=== PATIENT | female | born 1930 | race Hispanic/Latino ===

== ENCOUNTER 2021-06-26 05:43 | Emergency (ER) | payer MEDICARE ==
[~2021-06-26] VITALS: Ht 152.4 cm; Wt 70.8 kg
[2021-06-26 06:22] LABS: BASOPHILS % (AUTO) 0.2 % (0.0-5.0); EOSINOPHILS % (AUTO) 0.5 % (0.0-8.0); HEMATOCRIT 32.1 % (36-48); LYMPHOCYTES % (AUTO) 29.4 % (21.0-51.0); MEAN CORPUSCULAR HEMOGLOBIN 30.7 pg (27.0-33.0); MEAN CORPUSCULAR HGB CONC 35.2 g/dL (32.0-36.0); MEAN CORPUSCULAR VOLUME 87.2 fL (79-99); MONOCYTES % (AUTO) 6.3 % (3.0-13.0); NEUTROPHILS % (AUTO) 63.3 % (40.0-77.0); PLATELET COUNT (AUTO) 188 K/uL (130-400); RED BLOOD CELL COUNT(AUTO) 3.68 MIL/uL (4.00-5.50); RED CELL DISTRIBUTION WIDTH 13.4 % (11.0-15.5); WHITE BLOOD COUNT (AUTO) 6.6 K/uL (4.8-10.8)
[2021-06-26 06:25] LABS: APPEARANCE,URINE Clear (CLEAR); BILIRUBIN,URINE Negative (NEGATIVE); COLOR,URINE Yellow (YELLOW); GLUCOSE, URINE (UA) Negative (NEGATIVE); KETONES,URINE Negative (NEGATIVE); LEUKOCYTE ESTERASE ,URINE Trace (NEGATIVE); NITRATE,URINE Negative (NEGATIVE); OCCULT BLOOD,URINE Trace (NEGATIVE); PROTEIN,URINE Negative (NEGATIVE)
[2021-06-26] MEDS ORDERED: ONDANSETRON 4MG INJ IVP SCH (06:30)
[2021-06-26] MEDS ORDERED: MORPHINE 2 MG SYG IVP SCH (06:30)
[2021-06-26 06:32] LABS: BACTERIA,URINE None Seen /HPF (None Seen); RBC,URINE 0-1 /HPF (0-1); SQUAMOUS EPITHELIAL CELL,UR Rare /HPF (0-2); WBC,URINE 0-1 /HPF (0-1)
[2021-06-26 06:33] LABS: ALBUMIN 3.7 g/dL (3.5-5.0); BILIRUBIN,TOTAL 0.7 mg/dL (0.2-1.0); CREATININE 0.7 mg/dL (0.5-1.5); TOTAL PROTEIN, SERUM 7.1 g/dL (6.0-8.3)
[2021-06-26] MEDS ORDERED: ONDANSETRON 4MG INJ ONE (06:33)
[2021-06-26] MEDS ORDERED: MORPHINE 2 MG SYG ONE (06:33)
[2021-06-26 06:37] LABS: POTASSIUM 2.9 mmol/L (3.5-5.1)
[2021-06-26] MEDS ORDERED: POTASSIUM BICARB/CIT AC 25 MEQ TABLET.EFF PO SCH (07:30)
[2021-06-26] MEDS ORDERED: KETOROLAC 15MG/ML VIAL (15MG/ML) IV SCH (08:30)
[2021-06-26] MEDS ORDERED: LIDOCAINE 5% TOPICAL PATCH TP SCH (08:30)
[2021-06-26] MEDS ORDERED: LIDOCAINE 5% TOPICAL PATCH TP ONE (08:31)
[2021-06-26] MEDS ORDERED: KETOROLAC 15MG/ML VIAL (15MG/ML) ONE (08:31)
[2021-06-26 08:40] VITALS: BP 145/59
[2021-06-26] MEDS ORDERED: DICL20GE TP (09:19)
[2021-06-26] MEDS ORDERED: LIDOP TD (09:19)
== END 2021-06-26 09:24 | disposition home or self-care (01) ==
LOC: EDH 05:43
DX: E87.6 Hypokalemia (principal); R07.89 Other chest pain; I10 Essential (primary) hypertension; M19.90 Unspecified osteoarthritis, unspecified site; Z79.1 Long term (current) use of non-steroidal anti-inflammatories (NSAID); Z79.899 Other long term (current) drug therapy; Z90.49 Acquired absence of other specified parts of digestive tract
CPT/HCPCS: 36415; 71045; 74176; 80053; 81001; 82150; 83690; 84484; 85025; 93005; 96374; 96375; 99285; J1885; J2405

== ENCOUNTER 2022-02-15 18:07 | Emergency (ER) | payer MEDICARE ==
[~2022-02-15] VITALS: Ht 152.4 cm; Wt 63.5 kg
[~2022-02-15 18:07] MED LIST: DICL20GE TP; LIDOP TD
[2022-02-15 18:11] VITALS: BP 207/84
[2022-02-15 18:39] LABS: APPEARANCE,URINE Cloudy (CLEAR); BILIRUBIN,URINE Negative (NEGATIVE); COLOR,URINE Orange (YELLOW); GLUCOSE, URINE (UA) Negative (NEGATIVE); KETONES,URINE Negative (NEGATIVE); LEUKOCYTE ESTERASE ,URINE Large (NEGATIVE); NITRATE,URINE Negative (NEGATIVE); OCCULT BLOOD,URINE Large (NEGATIVE); PH,URINE 5.5 (5.0-8.0); PROTEIN,URINE 300 mg/dL (NEGATIVE); UROBILINOGEN,URINE 0.2 mg/dL (0.2-1.0)
[2022-02-15 18:47] LABS: WBC,URINE 51-100 /HPF (0-1)
[2022-02-15 18:48] LABS: BACTERIA,URINE Rare /HPF (None Seen); SQUAMOUS EPITHELIAL CELL,UR Rare /HPF (0-2)
[2022-02-15 18:58] LABS: BASOPHILS % (AUTO) 0.2 % (0.0-5.0); EOSINOPHILS % (AUTO) 0.2 % (0.0-8.0); HEMATOCRIT 35.6 % (36-48); LYMPHOCYTES % (AUTO) 20.2 % (21.0-51.0); MEAN CORPUSCULAR HEMOGLOBIN 30.3 pg (27.0-33.0); MEAN CORPUSCULAR HGB CONC 34.6 g/dL (32.0-36.0); MEAN CORPUSCULAR VOLUME 87.7 fL (79-99); MONOCYTES % (AUTO) 6.2 % (3.0-13.0); NEUTROPHILS % (AUTO) 72.6 % (40.0-77.0); PLATELET COUNT (AUTO) 210 K/uL (130-400); RED BLOOD CELL COUNT(AUTO) 4.06 MIL/uL (4.00-5.50); RED CELL DISTRIBUTION WIDTH 12.7 % (11.0-15.5); WHITE BLOOD COUNT (AUTO) 13.3 K/uL (4.8-10.8)
[2022-02-15 19:51] LABS: CREATININE 0.6 mg/dL (0.5-1.5); POTASSIUM 3.8 mmol/L (3.5-5.1)
[2022-02-15 19:56] LABS: ALBUMIN 3.8 g/dL (3.5-5.0); BILIRUBIN,TOTAL 0.5 mg/dL (0.2-1.0); TOTAL PROTEIN, SERUM 7.4 g/dL (6.0-8.3)
[2022-02-15] MEDS ORDERED: CEPH500B PO (20:30)
[2022-02-15] MEDS ORDERED: CEPHALEXIN 500 MG CAPSULE PO ONE (20:30)
== END 2022-02-15 20:41 | disposition home or self-care (01) ==
LOC: EDH 18:07
DX: N39.0 Urinary tract infection, site not specified (principal); J20.9 Acute bronchitis, unspecified; I10 Essential (primary) hypertension; Z79.1 Long term (current) use of non-steroidal anti-inflammatories (NSAID)
CPT/HCPCS: 36415; 80053; 81001; 85025; 87077; 87088; 87186

== ENCOUNTER 2022-05-30 22:56 | Emergency (ER) | payer MEDICARE ==
[~2022-05-30] VITALS: Ht 154.9 cm; Wt 67.1 kg
[~2022-05-30 22:56] MED LIST changes: +CEPH500B PO
[2022-05-30 22:58] VITALS: BP 255/117
[2022-05-30 23:14] LABS: BASOPHILS % (AUTO) 0.3 % (0.0-5.0); EOSINOPHILS % (AUTO) 0.2 % (0.0-8.0); HEMATOCRIT 36.2 % (36-48); LYMPHOCYTES % (AUTO) 12.3 % (21.0-51.0); MEAN CORPUSCULAR HEMOGLOBIN 31.3 pg (27.0-33.0); MEAN CORPUSCULAR HGB CONC 34.8 g/dL (32.0-36.0); MEAN CORPUSCULAR VOLUME 89.8 fL (79-99); MONOCYTES % (AUTO) 10.6 % (3.0-13.0); NEUTROPHILS % (AUTO) 76.1 % (40.0-77.0); PLATELET COUNT (AUTO) 163 K/uL (130-400); RED BLOOD CELL COUNT(AUTO) 4.03 MIL/uL (4.00-5.50); RED CELL DISTRIBUTION WIDTH 12.8 % (11.0-15.5); WHITE BLOOD COUNT (AUTO) 5.9 K/uL (4.8-10.8)
[2022-05-30 23:26] LABS: CREATININE 0.7 mg/dL (0.5-1.5); TOTAL PROTEIN, SERUM 7.4 g/dL (6.0-8.3)
[2022-05-30 23:28] LABS: POTASSIUM 2.9 mmol/L (3.5-5.1)
[2022-05-30] MEDS ORDERED: SOLU-MEDROL 125MG VIAL ONE (23:51)
[2022-05-30] MEDS ORDERED: HYDRALAZINE 20MG/ML VIAL ONE (23:51)
[2022-05-30 23:53] LABS: INFLUENZA TYPE A NEGATIVE FOR TYPE A (NEG)
[2022-05-30 23:54] LABS: INFLUENZA TYPE B NEGATIVE FOR TYPE B (NEG)
[2022-05-31] MEDS ORDERED: HYDRALAZINE 20MG/ML VIAL IV ONE
[2022-05-31] MEDS ORDERED: KCL 20 MEQ ERTAB PO ONE
[2022-05-31] MEDS ORDERED: POTASSIUM CHLORIDE 20MEQ/10ML 10 MEQ in 0.9%NACL 50ML 50 ML IV SCH ×2
[2022-05-31] MEDS ORDERED: SOLU-MEDROL 125MG VIAL IM ONE
[2022-05-31 00:20] LABS: APPEARANCE,URINE CLEAR (CLEAR); BILIRUBIN,URINE NEGATIVE (NEGATIVE); COLOR,URINE COLORLESS (YELLOW); GLUCOSE, URINE (UA) NEGATIVE (NEGATIVE); KETONES,URINE NEGATIVE (NEGATIVE); LEUKOCYTE ESTERASE ,URINE NEGATIVE Leu/uL (NEGATIVE); NITRATE,URINE NEGATIVE (NEGATIVE); OCCULT BLOOD,URINE SMALL (NEGATIVE); PH,URINE 5.5 (5.0-8.0); PROTEIN,URINE NEGATIVE (NEGATIVE); UROBILINOGEN,URINE 0.2 mg/dL (0.2-1.0)
[2022-05-31 00:28] LABS: BACTERIA,URINE RARE /HPF (None Seen); SQUAMOUS EPITHELIAL CELL,UR RARE /HPF (0-2)
[2022-05-31] MEDS ORDERED: POTASSIUM CHLORIDE 10MEQ/100ML 100 ML IV SCH (00:30)
[2022-05-31] MEDS ORDERED: IPRATROPIUM/ALBUTEROL SULFATE 3 ML SOLUTION IH ONE ×2 (04:00)
[2022-05-31] MEDS ORDERED: ALPRAZOLAM 0.25 MG TABLET PO ONE (05:00)
[2022-05-31 05:12] LABS: ABG HCO3 20.6 mmol/L (21.0-28.0); ABG OXYGEN SATURATION 96.4 % (95.0-99.0); ABG PCO2 30 mmHg (32-45)
[2022-05-31] MEDS ORDERED: PRED20TA3 PO (05:20)
[2022-05-31] MEDS ORDERED: CEFU500T67 PO (05:20)
[2022-05-31] MEDS ORDERED: ALBU8.5H8 IH (05:20)
== END 2022-05-31 05:40 | disposition home or self-care (01) ==
LOC: EDH 22:56
DX: J44.1 Chronic obstructive pulmonary disease with (acute) exacerbation (principal); E87.6 Hypokalemia; Z20.822 Contact with and (suspected) exposure to COVID-19; I10 Essential (primary) hypertension; Z90.49 Acquired absence of other specified parts of digestive tract; Z98.890 Other specified postprocedural states; Z79.899 Other long term (current) drug therapy
CPT/HCPCS: 99285; 87635; 84484; 80053; 82803; 83880; 85025; 87804 ×2; 81001; 36415 ×2; 96365; 96366; 71045; 96375; 36600; 94640; 96372; C9803; J2930; J0360